=== PATIENT | female | born 1955 | race Caucasian/White ===

== ENCOUNTER → 2016-08-12 | Outpatient (CLI) | payer OTHER | LOC: RAD 04:55 | DX: Z12.31 Encounter for screening mammogram for malignant neoplasm of breast (principal) ==

== ENCOUNTER → 2016-11-11 | Outpatient (CLI) | payer OTHER ==
--- NOTE | ~2016-11-11 | 2DMMODE ---
[facility] [address] [place] [address] 2 D/M-MODE ECHOCARDIOGRAM Name: CHINA HANKS MARTIR Room #: REG CL [facility].#: [id number] Admission: 11/11/16 Attend Phys: Arvind Chiu Discharge: Date of : 57 Date of Service: 11/11/16 1329 Report #: [id number] THIS REPORT FOR: //name// APPROVED REPORT Study performed: 11/11/2016 10:03:47 EXAM: Comprehensive 2D, Doppler, and color-flow Echocardiogram Patient Location: Echo lab Room #: [id number] Blood Pressure: 136/76 mmHg HR: 72 bpm Other Information Study Quality: Good Indications Migraine. R^O PFO Echo Enhancing Agent Indication: Rule out Shunt Agent/Amount Used: Agitated Saline 7 cc 2D Dimensions RVDd: 27.54 mm LVEF(%): 60.20 (>50%) IVSd: 8.10 (7-11mm) LVDd: 40.10 mm PWd: 9.13 (7-11mm) LVDs: 27.41 (25-40mm) Aortic Root: 25.04 mm IVC: 9.00 mm Bain's LVEF: 60.20 % Volumes Left Atrial Volume (Systole) Single Plane 4CH: 39.69 mL Single Plane 2CH: 34.78 mL LA ESV Index: 27.00 mL/m2 Aortic Valve AoV Peak Sekou.: 0.91 m/s AO Peak Gr.: 3.33 mmHg LVOT Max P.37 mmHg LVOT Max V: 0.77 m/s [facility] [address] [place] [address] 2 D/M-MODE ECHOCARDIOGRAM Name: CHINA HANKS [facility] Room #: REG CL [facility].#: [id number] Admission: 11/11/16 Attend Phys: Arvind Chiu Discharge: Date of : 57 Date of Service: 11/11/16 1329 Report #: [id number] Mitral Valve E/A Ratio: 1.2 MV Decel. Time: 212.05 ms MV E Max Sekou.: 0.57 m/s MV A Sekou.: 0.48 m/s MV PHT: 61.50 ms Pulmonary Valve PV Peak Sekou.: 0.70 m/s PV Peak Gr.: 1.98 mmHg Pulmonary Vein P Vein S: 58.2 m/s P Vein D: 29.3 m/s P Vein A Dur.: 33.3 m/s Tricuspid Valve TR Peak Sekou.: 2.28 m/s RAP Estimate: 5.00 mmHg TR Peak Gr.: 20.80 mmHg Left Ventricle The left ventricle is normal size. There is normal left ventricular wall thickness. The left ventricular systolic function is normal. The left ventricular ejection fraction is within the normal range. LVEF is 60-65%. Left ventricular filling pattern is normal for age. Right Ventricle The right ventricle is normal size. The right ventricular systolic function is normal. Atria The left atrium size is normal. The right atrium size is normal. Aortic Valve The aortic valve is normal in structure. No aortic regurgitation is present. There is no aortic valvular stenosis. Mitral Valve The mitral valve is normal in structure. Trace mitral regurgitation. No evidence of mitral valve stenosis. Tricuspid Valve The tricuspid valve is normal in structure. There is trace tricuspid regurgitation. The right atrial pressure is estimated at 5 mmHg. There is no pulmonary hypertension. Pulmonic Valve [facility] [address] [place] [address] 2 D/M-MODE ECHOCARDIOGRAM Name: CHINA HANKS MARTIR [id number] Admission: 11/11/16 Attend Phys: Arvind Chiu Discharge: Date of : 57 Date of Service: 11/11/16 1329 Report #: [id number] The pulmonary valve is normal in structure. There is no pulmonic valvular regurgitation. Great Vessels The aortic root is normal in size. IVC is normal in size and collapses >50% with inspiration. Pericardium There is no pericardial effusion. <Conclusion> The left ventricle is normal size. LVEF is 60-65%. The aortic valve is normal in structure. The mitral valve is normal in structure. Trace mitral regurgitation. The tricuspid valve is normal in structure. There is trace tricuspid regurgitation. The right atrial pressure is estimated at 5 mmHg. There is no pulmonary hypertension. <ELECTRONICALLY SIGNED> By: Sanjiv Wells MD 11/11/161328 28 28 Sanjiv Wells MD /INF
== END ==
LOC: CV 10:43
DX: R00.2 Palpitations (principal)

== ENCOUNTER → 2017-10-06 | Outpatient (CLI) | payer OTHER | LOC: RAD 01:04 | DX: Z12.31 Encounter for screening mammogram for malignant neoplasm of breast (principal) ==

== ENCOUNTER → 2020-12-16 | Outpatient (CLI) | payer OTHER | LOC: CAT 08:31 | PROVIDERS: ATTEND Nurse Practitioner | DX: Z13.6 Encounter for screening for cardiovascular disorders (principal) ==